=== PATIENT | female | born 1990 | race Caucasian/White ===

== ENCOUNTER 2017-01-10 18:50 | Emergency (ER) | payer OTHER | END 2017-01-10 19:39 | disposition left against medical advice (07) | LOC: ED 18:50 | DX: R10.31 Right lower quadrant pain (principal); Z87.442 Personal history of urinary calculi; Z53.21 Procedure and treatment not carried out due to patient leaving prior to being seen by health care provider | CPT/HCPCS: J2405 ==

== ENCOUNTER 2017-01-10 20:47 | Emergency (ER) | payer OTHER | END 2017-01-10 21:51 | disposition home or self-care (01) | LOC: ED 20:47 | DX: E83.59 Other disorders of calcium metabolism (principal); N29 Other disorders of kidney and ureter in diseases classified elsewhere; Z87.442 Personal history of urinary calculi; F17.210 Nicotine dependence, cigarettes, uncomplicated | CPT/HCPCS: J3010 ==

== ENCOUNTER → 2017-01-10 | Outpatient (CLI) | payer OTHER ==
[~2017-01-10] MED LIST: GOOD NEIGHBOR500 M2 PO; IBUPROFEN200 M1 PO; PERCOCET 325 MG1 TAB PO; SEPTRA DS 8001 TAB PO; ZARTAN500 MG PO
== END ==
LOC: LAB 17:26
DX: R10.9 Unspecified abdominal pain (principal); R30.0 Dysuria

== ENCOUNTER → 2017-01-13 | Outpatient (CLI) | payer OTHER ==
[2017-01-10 21:51] VITALS: BP 102/60
== END ==
LOC: LAB 14:09 → EDSTATUS 17:41
DX: R30.0 Dysuria (principal); E83.59 Other disorders of calcium metabolism; R10.9 Unspecified abdominal pain

== ENCOUNTER → 2017-01-13 | Outpatient (CLI) | payer OTHER ==
[2017-01-13 17:49] VITALS: BP 119/63
[2017-01-13 20:14] VITALS: BP 106/57
--- NOTE | 2017-01-13 20:18 | NUR ---
ALL APPROPRIATE DC PAPERWORK REVIEWED WITH PATIENT AT THIS TIME REGARDING FOLLOW UP APPOINTMENTS IN THE [facility] TOMORROW TO RECHECK LABS AND FOLLOW UP WITH HER HEAD TRANSFER CLERK ON TUESDAY ALREADY SCHEDULED, BILL HERNANDEZ CALLED INTO [facility] FOR PATIENT TO BEGIN TAKING TOMORROW, AMBULATORY UPON DC AND IN A CALM AND COOPERATIVE MOOD WITH STAFF
== END ==
LOC: LAB 17:20
DX: E83.59 Other disorders of calcium metabolism (principal)
CPT/HCPCS: J1885; J1956; J2405; J3010; J7030

== ENCOUNTER 2017-01-14 18:28 | Observation (INO) | payer OTHER ==
[2017-01-14 18:36] VITALS: BP 120/7; BP 120/70
[2017-01-14 18:50] VITALS: BP 120/70
--- NOTE | 2017-01-14 19:44 | NUR ---
Pt admitted observation to room 206. Accompanied by her Asa. She reports pain in her right flank, right side abdominal area in to right pelvis and in her mid back. She reports the mid back pain is new. Reports intermittent periods of stabbing with constant throbbing at all times. She denies any home medications and no known allergies. Faint inspiratory wheezes heard in bases. Pt reports exposure to second hand smoke. No noted skin concerns. 20 gauge peripheral IV started in her left AC. Blood return noted. NS started at 125 ml/hr and then increased to 500 ml/hr per orders. Educated patient on blood cultures and influenza swabs. Reported to her that her influenza had already reported back as negative. Applied warm blankets behind her back for comfort and gave her PRN tylenol. She reports taking Ibuprofen one hour prior to arrival. Reports diarrhea with last episode earlier today. Reported urine is brown in color and cloudy.
[2017-01-14 20:02] VITALS: BP 120/70
--- NOTE | 2017-01-14 21:15 | NUR ---
Report received from Michelle Hewitt RN. Patient reports to DEVELOPMENT SCIENTIST that the fluids running fast are "making me feel funny". Nurse to room. Patient reports feels as if her abdomen is "full of fluid". Reports pain now at an 8/10, increased from a [address] acrossed her back now. Approxiamately 100 ML left of IV fluids at this rate. Instructed DEVELOPMENT SCIENTIST to obtain V/S and will call Dr. Schmitt as instructed.
[2017-01-14 21:28] VITALS: BP 92/54
--- NOTE | 2017-01-14 21:30 | NUR ---
Dr. Schmitt notified of V/S and of verbalization of increased pain and of pain in epigastric region of abdomen.
--- NOTE | 2017-01-14 21:38 | NUR ---
Dr. Schmitt in to see patient.
--- NOTE | 2017-01-14 22:17 | NUR ---
New bag of normal saline hung at 125 ML/HR. Site patent. Stadol 1MG and Zofran 4 MG given IV at this time. Instructed patient on needing to call if she needs to get up due to not knowing how Stadol would affect her. Also instructed on need to bladder scan her so to let staff know when she is in need of using the bathroom. PLANISHER had instructed patient earlier of need to keep collection container in the toilet for I/O purposes, as patient had been removing the container when up to void.
--- NOTE | 2017-01-14 22:40 | NUR ---
Rests with eyes closed. No signs of pain or distress. Bed alarm on. Call light in reach.
[2017-01-14 22:51] VITALS: BP 90/51
--- NOTE | 2017-01-14 23:18 | NUR ---
IV pump heard then not heard. Nurse down to room. Patient sleeping. in recliner states. "he pump went off, she moved". pump noted to be running now at the 125 ML/HR. He then states, oh, she went to the bathroom, it's in there. This nurse reminds that we wanted to scan the bladder prior to and after her void. MANAGING CONSULTANT down to bladder scan. Note < 50 ML in collection container and post void scan, 23 ML.
--- NOTE | 2017-01-15 00:37 | NUR ---
Rests with eyes closed. Respirations even and non-labored. No signs of pain or distress. IVF infusing at 125 ML/HR. Site patent.
--- NOTE | 2017-01-15 02:09 | NUR ---
Patient with urge to void. Pre-bladder scan 238 ML. Up to BR voids 200 ML clear yellow urine. Assisted back to bed. Post bladder scan 0 ML. Rates pain 4/10. "tolerable". IVF continue at 125 ML/HR. gone home. Bed alarm on. Call light in reach.
[2017-01-15 02:57] VITALS: BP 88/48
--- NOTE | 2017-01-15 04:06 | NUR ---
Rests with eyes closed. No signs of pain or distress. Bed alarm on. Call light in reach.
--- NOTE | 2017-01-15 04:27 | NUR ---
Rings call light for assist to BR. Bladder scanned 116 ML pre-void. Up to BR. Voids 100 ML of urine. Assisted back to bed. Post void scan 16 ML. States pain is starting to "go back up". rates 6/10 to right flank area. Warm blanket provided to area. Tylenol 1000 Mg administered at this time.
--- NOTE | 2017-01-15 05:30 | NUR ---
Reports no relief from Tylenol. States pain is increasing now a 05/23. Requests "something stronger". Stadol 1 Mg given IV at this time. Patient reports each time she has used the BR she has had "diarrhea". She has flushed the toilet and this has not been witnessed by staff. Patient advised not to flush and allow staff to see and assess BM's. Denies further wants or needs.
--- NOTE | 2017-01-15 06:08 | NUR ---
IV fluids completed. IV locked. Reports pain decreased to a 4-5/10. PO levaquin taken. Denies further wants or needs.
[2017-01-15 06:28] VITALS: BP 91/48
--- NOTE | 2017-01-15 07:10 | NUR ---
REPORT RECEIVED FROM NAVJOT POTTER LPN
--- NOTE | 2017-01-15 07:26 | NUR ---
Report to Elisabeth FOY
--- NOTE | 2017-01-15 07:55 | NUR ---
patient lying in bed with head of bed elevated. patient's shift assessment complete. patient alert and oriented x4. patient's affect flat. color pale. reports having pain rated 4/10 in right lower abdomen that radiates around to right lower back. describes pain as stabbing/shooting pain. when asked if she is feeling any better states "no" denies shortness of breath or difficulties breathing. bowel sounds audible in all quadrants. reports having right abdominal quadrant pain upon palpation, guards upon palpation to right side. patient asks this nurse after assessment is complete "so can i go home now" patient asked if she felt ready to go home even though she reported not feeling any better this morning than she had been patient states "yeah i'm ready to go home" as this nurse was leaving room patient states "hey can you turn my bed alarm off while your in here" patient educated on need for bed alarm and that she had pain medication this morning making her at higher risk for falls. verbalized understanding. patient's call light within reach. bed alarm on.
--- NOTE | 2017-01-15 08:27 | NUR ---
in with patient.
--- NOTE | 2017-01-15 09:25 | NUR ---
patient provided one time order for stadol,toradol and pepcid. patient to be getting ct scan of abdomen with contrast. patient agreeable to also getting prn zofran prior to ct scan when offered. prn zofran 4mg administered.
--- NOTE | 2017-01-15 10:00 | NUR ---
IN WITH PATIENT
[2017-01-15 11:00] VITALS: BP 92/50
--- NOTE | 2017-01-15 12:15 | NUR ---
report given to luis carlos arroyo
--- NOTE | 2017-01-15 12:24 | NUR ---
Report received from Pretty Marcus RN and care assumed. Pt resting in bed, states pain is about 6/10 at this time but states that she does not feel like she needs pain medication at this time. Call light in reach, bed alarm on. Pt reminded to call prior to getting up and reminded that we need a stool sample.
--- NOTE | 2017-01-15 13:30 | NUR ---
Pt states that pain is now 7-8/10 and requests pain medication. During administration of pain medication, pt asks when she thinks she will be able to go home. Pt informed that she is still getting IV antibiotics, pain medication, and IV fluids, and if she still needs these medications, it may be in her best interest to stay for the treatment. Pt states that she would like to go home tonight or tomorrow morning at the latest. Dr. Schmitt notified of this.
--- NOTE | 2017-01-15 14:09 | NUR ---
Pt states that pain is decreased. Resting in bed, eyes closed. No further needs at this time.
[2017-01-15 14:57] VITALS: BP 101/49
--- NOTE | 2017-01-15 15:37 | NUR ---
Pt resting in bed with eyes closed and no signs of distress or discomfort at this time. Call light in reach, bed alarm on.
--- NOTE | 2017-01-15 16:00 | NUR ---
REPORT RECEIVED FROM DANII WANG
--- NOTE | 2017-01-15 16:03 | NUR ---
Report given to Pretty Marcus RN.
--- NOTE | 2017-01-15 17:00 | NUR ---
patient lying in bed with head of bed elevated. this nurse in room to deliver dinner tray. patient refused tray. patient reports pain is "not too bad right now" rates pain at 5/10 in right lower abdominal quadrant. denies any need for intervention at this time. call light within reach. bed alarm on.
[2017-01-15 18:25] VITALS: BP 109/63
--- NOTE | 2017-01-15 19:18 | NUR ---
REPORT GIVEN TO NAVJOT POTTER LPN
--- NOTE | 2017-01-15 19:37 | NUR ---
Report received from Elisabeth FOY. Patient rests supine in bed with at bed side. A/O x4. Rates pain to right flank 04/23. Requests Stadol at this time. IVF infusing NS at 125 ML/HR. Site patent. Stadol 1 MG given. Instructed patent to call for assist before getting up out of bed. Assessemt completed. Denies wants or needs at this time. Bed alarm on. Call light in reach.
--- NOTE | 2017-01-15 19:48 | NUR ---
up to desk, asking if he could "get her some air, she is going stir crazy back there". This nurse asks if he means like a fan?. He states no. He would like to take her outside for awhile. Explained that she just had pain medication and that she would not be safe to walk long distance at this time. After talking with charge nurse if was decided that would allow patient and to go outside in W/C for a short time to allow patient to get out of room. Patient unhooked from fluids at this time. Assisted into W/C by ASSOCIATE PROFESSOR OF MUSIC and accompanied by outside in W/C, has been wanting to leave facility so stated this was a compromise to help get her to stay.
--- NOTE | 2017-01-15 20:05 | NUR ---
Returns to facilty and back to room. IVF resume at this time. States pain level decreased from Stadol. Assisted rests in bed. at bedside.
--- NOTE | 2017-01-15 22:05 | NUR ---
Reports trying to eat some broth and unable to due so. Gave to MANAGING JEWELER and had her throw it away. States her stomach is "pretty angry". Offered Zofran. Wants to wait and see if it will settle on its own. Denies needs at this time.
--- NOTE | 2017-01-15 23:01 | NUR ---
Requests medication for nausea and right flank pain 06/23. Currled up in ball on right side in bed. Urine output in collection container 100 ML of dark yellow with sediment. Stadol 1 MG and Zofran 4 MG IV given. IV patent. Fluids infusing at 125 ML/HR.
[2017-01-15 23:06] VITALS: BP 94/55
--- NOTE | 2017-01-15 23:50 | NUR ---
States pain is under control at present time and nausea is gone.
--- NOTE | 2017-01-16 00:45 | NUR ---
Resting with eyes closed. No signs of pain or distress. Bed alarm on. Call light in reach. IVF continue at 125 ML/HR.
--- NOTE | 2017-01-16 01:59 | NUR ---
IV Flagyl hung to be ran over 1 hour via pump. Continues resting with eyes closed. No signs of pain or distress. Bed alarm on. Call light in reach.
[2017-01-16 03:00] VITALS: BP 99/58
--- NOTE | 2017-01-16 06:26 | NUR ---
Up to BR voids 200 ML of monica urine with sediment. Rates pain 6/10 to right flank, radiating to mid-back, with some nausea. Wants to try Tylenol, stating wants to "bust out of here today". Talked to her about giving IV antibiotics time to do their job, as she doesn't want to leave too early and have to come right back in and that she needs to be able to eat and drink and have pain/nausa under control. Wants to hold off on Zofran at this time. Will call if needs some or stronger analgesic.
[2017-01-16 06:34] VITALS: BP 95/52
--- NOTE | 2017-01-16 07:11 | NUR ---
Rings call light, reports to INSOLE TAPER that pain is higher and would like other pain medication and anti-nausea medicaition. Report given to day nurse. This nurse and day nurse down to room for report. Rates pain 7-8/10. Curled up in position on right side. Day nurse to administer Toradol, Stadol and Zofran.
--- NOTE | 2017-01-16 07:20 | NUR ---
REPORT RECEIVED FROM NAVJOT POTTER LPN
--- NOTE | 2017-01-16 07:20 | NUR ---
PATIENT'S SHIFT ASSESSMENT COMPLETE. PATIENT ALERT AND ORIENTED X4. PATIENT'S AFFECT FLAT. COLOR PALE. REPORTS HAVING PAIN RATED 8/10. PATIENT IS A SHARP/STABBING PAIN TO RIGHT FLANK EXTENDING TO LOWER BACK. PROVIDED PRN ZOFRAN, STADOL, AND TORADOL PER ORDER. STATES "MY STOMACH IS UPSET THIS MORNING". BOWEL SOUNDS AUBIBLE IN ALL QUADRANTS. PAIN UPON PALPATION TO RIGHT ABDOMEN. GUARDING TO RIGHT ABDOMEN. REPORTS THAT OVERALL SHE FEELS "MAYBE A LITTLE BIT BETTER" THAN WHEN SHE WAS FIRST ADMITTED TO HOSPITAL. PATIENT REPORTS SHORTNESS OF BREATH. REPORTS THAT SOB STARTED AT APPROXIMATELY 0430 THIS MORNING. FINE CRACKLES AUSCULTATED TO LEFT LOWER LUNG THAT CLEARED AFTER SOME DEEP BREATHS. RIGHT LUNG ALL VELA AND LEFT UPPER LOBE CLEAR TO AUSCULTATION. SP02 97% ON ROOM AIR. NORMAL SALINE INFUSING TO IV IN LEFT AC AT 125 MLS/HR PER ORDER. REPORTS CONTINUING TO HAVE FREQUENT LOOSE STOOLS. PER PATIENT'S REPORT STOOL DARK AND VERY LOOSE. BOWEL MOVEMENTS NOT WITNESS BY NURSING STAFF. PATIENT INSTRUCTED MULTIPLE TIMES TO LEAVE STOOL IN TOILET WHEN SHE GOES SO THAT THIS NURSE CAN SEE STOOL AND DOCUMENT IT. PATIENT INSTRUCTED TO USE CALL LIGHT WHEN SHE NEEDS TO GET UP. PATIENT VERBALIZES UNDERSTANDING. PATIENT'S CALL LIGHT WITHIN REACH. BED ALARM ON.
--- NOTE | 2017-01-16 08:20 | NUR ---
CALLED AND NOTIFIED THAT PATIENT REPORTED HAVING SHORTNESS OF BREATH THAT STARTED AT 0430 THIS MORNING. THAT PATIENT RATES PAIN 8/10 AND IS REPORTING UPSET STOMACH THIS MORNING. NOTIFIED THAT PATIENT REPORTS THAT SHE IS READY TO GO HOME AND THAT SHE IS REQUESTING TO LEAVE THIS MORNIGN.
--- NOTE | 2017-01-16 08:57 | NUR ---
PATIENT'S CL 117. CALLED AND NOTIFIED AT THIS TIME.
[2017-01-16 11:00] VITALS: BP 111/72
--- NOTE | 2017-01-16 11:30 | NUR ---
PATIENT REPORTS PAIN IN RIGHT FLANK IS 5/10 AT THIS TIME DENIES ANY NEED FOR INTERVENTION AT THIS TIME.
--- NOTE | 2017-01-16 12:14 | NUR ---
IN WITH PATIENT AT THIS TIME.
--- NOTE | 2017-01-16 12:14 | NUR ---
IN WITH PATIENT. THIS NURSE AT BEDSIDE. SPEAKING WITH PATIENT ABOUT PLAN OF CARE. NOTIFIED PATIENT OF MOST RECENT LAB RESULTS AND NEEDED TREATMENTS. PATIENT ASKED MULTIPLE TIMES IF SHE COULD GO HOME AND IF SHE COULD JUST TAKE ORAL MEDICATIONS AT HOME AND THAT SHE DID NOT UNDERSTAND WHY SHE COULD NOT JUST CONTINUE TREATMENT AT HOME. INFORMED PATIENT OF IMPORTANCE OF STAYING IN HOSPITAL TO CONTINUE RECEIVING TREATMENT AND THAT CONTINUATION OF CARE IN THE HOSPITAL IS NECESSARY WITH HER CURRENT HEALTH. STRESSED TO PATIENT MULTIPLE TIMES THAT MAINTAINING ADEQUATE HYDRATION WAS CRUCIAL TO HER CURRENT HEALTH AND WAS NECESSARY FOR HER TO CONTINUE TO IMPROVE AND THAT IN HER CURRENT STATE SHE WOULD MOST LIKELY NOT BE ABLE TO MEET NEEDS WITH ORAL INTAKE ON HER OWN. PATIENT REPORTS THAT SHE CAN DRINK FLUIDS AT HOME. PATIENT INFORMED THAT SHE IS STILL REQUIRING AT LEAST 3000 MLS IV FLUIDS DAILY, IV PAIN MEDICATION, AND IS NOT EATING. VOICED MULTIPLE TIMES TO PATIENT THAT GOING HOME AT THIS POINT IS NOT IN HER BEST INTEREST AND THAT IF SHE CHOOSES TO LEAVE [facility] SHE WILL MOST LIKEY END UP BACK IN THE HOSPITAL. PATIENT'S ARRIVED IN ROOM TOWARDS END OF CONVERSATION. PATIENT STILL CONTINUES TO SAY THAT SHE WANTS TO GO HOME TODAY. TOLD PATIENT THAT SHE NEEDED TO STAY IN HOSPITAL TO GET BETTER AND THAT SHE HAS BEEN SICK FOR AWHILE. THIS NURSE AND LEFT ROOM TO ALLOW PATIENT AND TO DISCUSS OPTIONS.
--- NOTE | 2017-01-16 14:18 | NUR ---
barber shop manager reports that patient told her she is ready for her papers and that she wants the paper to sign to leave [facility]. this nurse in patient's room patient's sitting in recliner in room. patient states "i've made my decision i'm gonna sign my papers and leave" this nurse spoke with patient more about risks of leaving. patient encouraged multiple times to stay.this nurse asked patient how her feels about her decision. patient states "he doesn't care what i do either way" after patient's response her pops up from chair and says "you know that's not true, you know i think you should stay" this nurse asked patient if she was interested in any resources or if patient needed anything, denies. patient asked why she is wanting to leave so badly. states "i just need to get out of here for a couple of days, i want to be home in my own bed" has stated several times today and yesterday to this nurse during conversation that she has 2 kids to take care of at home and that she has to take kids to school in the morning and pick them up from school. this nurse asked patient if there was anyone else that could help with her kids or could help take them to school. mitesh head no. asked patient if her was available to help. patient states "he can't he works the pipelines"
--- NOTE | 2017-01-16 14:29 | NUR ---
called and notified that patient reports that she wants to leave [facility] and that she has requested paperwork to sign and would like to start getting ready to leave. orders from dr. mallory to instruct patient to drink plenty of fluids, not eat solid foods until stool is no longer loose, to follow up with doctor as soon as possible, and that she needs to have colonoscopy done.
--- NOTE | 2017-01-16 14:50 | NUR ---
patient's sodium bicarb infusion and iv fluids stopped and iv to left forearm removed. patient had 100 mls of monica colored urine present in urine hat. 150 mls of measured stool present in other hat. stool in hat very dark green/black. stool consistancy is liquid tar like with small amount of clear oil like liquid in hat. patient provided health summary to take to future doctors appointments, provided discharge instructions from provider. verbalized understanding of instructions. patient signed [facility] form with this nurse witnessing.
--- NOTE | 2017-01-16 14:55 | NUR ---
PATIENT LEFT FACILITY AMA TO PO AT THIS TIME. PATIENT LEFT FACILITY IN WHEELCHAIR ACCOMPANIED BY THIS NURSE AND PATIENT'S . AMA FORM SIGNED BY PATIENT. PERSONAL BELONGINGS SENT WITH PATIENT'S . PATIENT PROVIDED PRINT OUT OF HEALTH SUMMARY DISHCARGE INSTRUCTIONS AND EDUCATION PRINT OUT ON CLEAR LIQUID DIET.
== END 2017-01-16 14:55 | disposition left against medical advice (07) ==
LOC: MED/SURG 18:28
PROVIDERS: ADMIT Nurse Practitioner Primary Care
DX: K52.9 Noninfective gastroenteritis and colitis, unspecified (principal); E87.2 Acidosis; E86.9 Volume depletion, unspecified; R63.0 Anorexia; Z87.440 Personal history of urinary (tract) infections; Z87.442 Personal history of urinary calculi
CPT/HCPCS: J0595; J1885; J2060; J2405; J2930; J7030; J7060; Q9967

== ENCOUNTER → 2017-01-14 | Outpatient (CLI) | payer OTHER | LOC: LAB 15:51 | DX: R30.0 Dysuria (principal); E83.59 Other disorders of calcium metabolism; R10.9 Unspecified abdominal pain ==

== ENCOUNTER → 2024-03-20 | Outpatient (CLI) | payer OTHER ==
[~2024-03-20] MED LIST changes: +MACROBID 100 M100 MG PO
== END ==
LOC: RAD 14:30
DX: M25.572 Pain in left ankle and joints of left foot (principal)